=== PATIENT | female | born 1985 | race Caucasian/White ===

== ENCOUNTER 2020-06-22 16:29 | Emergency (ER) | payer OTHER, BC ==
[~2020-06-22] VITALS: Ht 165.1 cm; Wt 85.7 kg
[2020-06-22 16:35] VITALS: Ht 165.1 cm; Wt 85.7 kg
[2020-06-22 18:07] VITALS: BP 128/76
== END 2020-06-22 18:07 | disposition home or self-care (01) ==
LOC: ED 16:29
DX: R07.9 Chest pain, unspecified (principal); V49.49XA Driver injured in collision with other motor vehicles in traffic accident, initial encounter; Y93.I9 Activity, other involving external motion; Y92.413 State road as the place of occurrence of the external cause; Y99.8 Other external cause status
CPT/HCPCS: Q0092